=== PATIENT | female | born 1980 | race Caucasian/White ===

== ENCOUNTER → 2017-12-10 | Outpatient (CLI) | payer OTHER | LOC: BMCIMAGING 10:20 | PROVIDERS: ATTEND Physician Assistant | DX: M16.11 Unilateral primary osteoarthritis, right hip (principal) ==

== ENCOUNTER → 2018-01-05 | Outpatient (CLI) | payer OTHER | LOC: CIMAGING 09:21 | PROVIDERS: ATTEND Physician Assistant | DX: Z01.89 Encounter for other specified special examinations (principal); M24.851 Other specific joint derangements of right hip, not elsewhere classified; Z87.81 Personal history of (healed) traumatic fracture ==

== ENCOUNTER → 2018-01-07 | Outpatient (CLI) | payer OTHER | LOC: FIMAGING 10:32 | PROVIDERS: ATTEND Physician Assistant | DX: Z13.828 Encounter for screening for other musculoskeletal disorder (principal) ==

== ENCOUNTER 2018-03-30 06:09 | Inpatient (IN) | payer OTHER ==
[~2018-03-30 06:09] MED LIST: ROPIVACAINE 0.2% 80 MG, EPINEPHrine 0.2 MG, KETOROLAC TROMETHAMINE 30 MG, morphINE 10 M... IU ONE; TRANEXAMIC ACID 1,000 MG in NS 100 ML IV ONE
--- NOTE | 2018-03-30 06:40 | PDIAF ---
- Diagnosis Diagnosis: right hip djd Code Status: Full Code - Medication Management Discharge Medications: Medications to Continue on Transfer Ibuprofen [Motrin (*)] 200 mg PO DAILY PRN 03/03/18 [Last Taken Unknown] Multivitamins [Multivitamin (*)] 1 each PO DAILY 03/03/18 [Last Taken Unknown] Discharge Medications: Refer to the Discharge Home Medication list for PRN reason. - Orders Services needed: Physical Therapy Isolation Type: None Diet Recommendation: no restrictions on diet Diet Texture: Regular Texture Diet Additional Instructions: TOTAL JOINT ARTHROPLASTY DISCHARGE INSTRUCTIONS 1. Your surgeon follows the [facility] protocol for reducing your risk of DVT (blood clots) following surgery. Medication will be ordered to prevent blood clots. A sudden increase in calf pain and/or swelling could indicate a blood clot in your leg. If this occurs, please call your surgeon or his/her metal forger's assistant. An ultrasound of the leg may be necessary to diagnose a blood clot. If you have conditions that make you a higher risk for blood clots, your surgeon may use more aggressive ways to prevent them. Notify your surgeon if you think you are a high risk for blood clots. 2. Wear your white surgical stockings (ASAD hose) for 2 weeks. This decreases your swelling and may help prevent blood clots. It is ok to remove ASAD hose at night time to give your legs a break. 3. Swelling and bruising in the surgical leg is common. If you feel that it is excessive, please notify your surgeon. 4. Elevate your surgical leg with the ankle above the hip several times every day. Please keep the leg straight when you elevate by putting pillows under your foot. Do not put pillows under your knee. This will make being able to fully straighten more difficult. This is uncomfortable, but try to do it as much as possible. 5. For total knee replacements use compressive wrap on your knee for 3-5 days after surgery, then you can discontinue it. 6. Use a walker or crutches for 1-2 weeks. Progress your weight-bearing as tolerated. You may start to use a cane when you feel stable and safe. 7. You will receive physical therapy instructions in the hospital. Continue those exercises at home. There are additional exercises in the total joint booklet you were given before surgery. Outpatient physical therapy will begin 7- 10 days after surgery. Please schedule this in advance. 8. Use ice on your knee at least 3-5 times every day for 30 minutes. This helps reduce pain and swelling. Also use it at night before falling asleep. 9. Leave your surgical dressing in place for 2 weeks. Your dressing is water resistant, but not waterproof. Cover it with Saran Wrap or Jvidu-h-Nhbm before showering. You may shower as soon as you feel safe entering a shower. If you notice bleeding from your incision 2 or 3 days after surgery, please notify your surgeon. 10. Due to narcotics, decreased activity and altered diet, most patients experience constipation after surgery. Use mzrr-egd-edtyycl stool softeners while you are on narcotics. 11. You may drive a car when you are comfortable bearing weight, have good muscular control of your leg and are off narcotics. This usually occurs 2-4 weeks after surgery, depending on which leg was operated on. 12. If there are questions not addressed here, please refer the [facility] book given for more information. If you still have questions, please contact your surgeon s office. 13. If you have a life-threatening emergency, please call 911 and go to the emergency room immediately. For non-life threatening emergencies, please call your physicians office for advice before going to the emergency room. - Follow Up Care Current Providers and Referrals: Eri Irizarry MD [Primary Care Provider] - Milton Tillman MD [Medical Doctor] -
--- NOTE | 2018-03-30 06:40 | PDHPUP ---
History & Physical Update H&P update statement: This history and physical update is based on an assessment of the patient which was completed after admission or registration (within 24 hours), but prior to the surgery/procedure. H&P update: no change in patient's condition since H&P completed
[2018-03-30] MEDS ORDERED: ACETAMINOPHEN 325 MG TAB PO ONE (06:58)
[2018-03-30] MEDS ORDERED: FAMOTIDINE 20 MG TAB PO ONE (06:58)
[2018-03-30] MEDS ORDERED: ceFAZolin 2 GM/DEXTROSE 100 ML IV ONE (06:58)
[2018-03-30] MEDS ORDERED: ceFAZolin 1 GM/5 ML SYR ONE (07:05)
[2018-03-30] MEDS ORDERED: LR 1,000 ML IV ONE (07:29)
[2018-03-30] MEDS ORDERED: LIDOCAINE 1% 2 ML INJ ID PRN (07:29)
[2018-03-30] MEDS ORDERED: MIDAZOLAM 2 MG/2 ML VIAL IVP ONE (07:51)
--- NOTE | 2018-03-30 08:02 | PDANEPAE ---
ANE History of Present Illness GEOVANNI, R ANE Past Medical History - Cardiovascular History Hx Hypertension: No Hx Arrhythmias: No Hx Chest Pain: No Hx Coronary Artery / Peripheral Vascular Disease: No Hx CHF / Valvular Disease: No Hx Palpitations: No - Pulmonary History Hx COPD: No Hx Asthma/Reactive Airway Disease: No Hx Recent Upper Respiratory Infection: No Hx Oxygen in Use at Home: No Hx Sleep Apnea: No Sleep Apnea Screening Result - Last Documented: Negative - Neurologic History Hx Cerebrovascular Accident: No Hx Seizures: No Hx Dementia: No - Endocrine History Hx Diabetes: No Hypothyroid: No Hyperthyroid: No Obesity: no - Renal History Hx Renal Disorders: No - Liver History Hx Hepatic Disorders: No - Neurological & Psychiatric Hx Hx Neurological and Psychiatric Disorders: No - Cancer History Hx Cancer: No Cancer History Comment: BASAL CELL - Congenital Disorder History Hx Congenital Disorders: No - GI History GERD: no Hx Gastrointestinal Disorders: No Gastrointestinal History Comment: CELIAC DISEASE W/ IRREG - Other Health History Other Health History: none - Chronic Pain History Chronic Pain: Yes (right knee) - Surgical History Prior Surgeries: right hip reconstructive surgery x3. lymph node biopsies ANE Review of Systems Review of Systems: - Exercise capacity METS (RN): 5 METS ANE Patient History - Allergies Allergies/Adverse Reactions: No Known Allergies Allergy (Verified 03/03/18 10:19) - Home Medications Home Medications: Ibuprofen [Motrin (*)] 200 mg PO DAILY PRN 03/03/18 [Last Taken 03/23/18] Multivitamins [Multivitamin (*)] 1 each PO DAILY 03/03/18 [Last Taken Unknown] - NPO status NPO Since - Liquids (Date): 03/29/18 NPO Since - Liquids (Time): 23:29 NPO Since - Solids (Date): 03/29/18 NPO Since - Solids (Time): 22:00 - Anes Hx Anes Hx: post operative nausea and vomiting (pt. reports significant sleepiness post Scopolamine patch; would like to avoid it.) - Smoking Hx Smoking Status: Never smoked - Family Anes Hx Family Anes Hx: none Family Hx Anesthesia Complications: none ANE Labs/Vital Signs - Vital Signs Blood Pressure: 112/74 Heart Rate: 68 Respiratory Rate: 18 O2 Sat (%): 96 Height: 166.37 cm Weight: 61.235 kg ANE Physical Exam - Airway Neck exam: FROM Mallampati Score: Class 2 Mouth exam: normal dental/mouth exam - Pulmonary Pulmonary: clear to auscultation - Cardiovascular Cardiovascular: regular rate and rhythym - ASA Status ASA Status: II ANE Anesthesia Plan Anesthesia Plan: GA with mask, spinal Total IV Anesthesia: Yes
[2018-03-30] MEDS ORDERED: PROPOFOL 200 MG/20 ML VIAL ONE ×3 (08:07→09:50)
[2018-03-30] MEDS ORDERED: fentaNYL 100 MCG/2 ML INJ ONE (08:07)
[2018-03-30] MEDS ORDERED: ONDANSETRON 4 MG/2 ML VIAL ONE (09:28)
--- NOTE | 2018-03-30 10:36 | POSTOPPROG ---
Post Op Note Date of Operation: 03/30/18 Surgeon: Milton Tillman Partner Marketing Intern: leo Anesthesiologist: subha Anesthesia: Spinal Pre-op Diagnosis: right hip djd Post-op Diagnosis: same Indication: same Procedure: right juanito Inf/Abcess present in the surg proc area at time of surgery?: No Depth: Deep Incisional (Fascial) EBL: 100-500 Drains: Hemovac
[2018-03-30] MEDS ORDERED: POLYETHYLENE GLYCOL 3350 17 GM PKT PO PRN (10:37)
[2018-03-30] MEDS ORDERED: ONDANSETRON 4 MG/2 ML VIAL IVP PRN ×2 (10:37)
[2018-03-30] MEDS ORDERED: HYDROmorphONE/DILAUDID 1 MG/ML INJ IVP PRN (10:37)
[2018-03-30] MEDS ORDERED: PROMETHAZINE HCL 25 MG/ML INJ IVP PRN (10:37)
[2018-03-30] MEDS ORDERED: fentaNYL 100 MCG/2 ML INJ IVP PRN (10:37)
[2018-03-30] MEDS ORDERED: CYCLOBENZAPRINE 10 MG TAB PO PRN (10:37)
[2018-03-30] MEDS ORDERED: TEMAZEPAM 15 MG CAP PO PRN (10:37)
[2018-03-30] MEDS ORDERED: BISACODYL 10 MG SUPP PR PRN (10:37)
[2018-03-30] MEDS ORDERED: diphenhydrAMINE 25 MG CAP PO PRN (10:37)
[2018-03-30] MEDS ORDERED: ONDANSETRON DISINTEGRATING 4 MG TAB PO PRN (10:37)
[2018-03-30] MEDS ORDERED: PROMETHAZINE HCL 25 MG SUPPR PR PRN (10:37)
[2018-03-30] MEDS ORDERED: DIPHENOXYLATE/ATROPINE LOMOTIL 1 TAB PO PRN (10:37)
[2018-03-30] MEDS ORDERED: MAGNESIUM HYDROXIDE 30 ML UDCUP PO PRN (10:37)
[2018-03-30] MEDS ORDERED: oxyCODONE IR 5 MG TAB PO PRN (10:37)
[2018-03-30] MEDS ORDERED: METOCLOPRAMIDE 10 MG/2 ML VIAL IVP PRN (10:37)
[2018-03-30] MEDS ORDERED: LACTULOSE 20 GM/30 ML UDCUP PO PRN (10:37)
[2018-03-30] MEDS ORDERED: NALOXONE HCL 0.4 MG/ML INJ IVP PRN (10:37)
[2018-03-30] MEDS ORDERED: TRANEXAMIC ACID 650 MG TAB PO SCH (10:45)
--- NOTE | 2018-03-30 11:33 | PDMN ---
Medical Necessity Medical necessity: [facility] G911 hip arthroplasty: [facility] INPT only- R GEOVANNI
[2018-03-30] MEDS: ACETAMINOPHEN 325 MG TAB PO SCH ×3 (12:38→23:46)
[2018-03-30] MEDS: LR 1,000 ML IV SCH ×2 (13:04→20:49)
--- NOTE | 2018-03-30 13:51 | POSTANESTH ---
Post Anesthetic Evaluation Cardiovascular Status: Normal, Stable Respiratory Status: Normal, Stable Level of Consciousness/Mental Status: Can Participate in Eval Pain Control: Adequate, Prn Tx Ordered Nausea/Vomiting Control: Adequate, Prn Tx Ordered Complications Possibly Related to Anesthesia: None Noted
[2018-03-30] MEDS: ceFAZolin 2 GM/DEXTROSE 100 ML IV SCH ×2 (14:18→22:03)
[2018-03-30] MEDS: TRANEXAMIC ACID 650 MG TAB PO SCH ×2 (14:18→22:03)
[2018-03-30] MEDS: FAMOTIDINE 20 MG TAB PO SCH (20:47)
[2018-03-30] MEDS: ASPIRIN 325 MG TAB PO SCH (20:47)
[2018-03-30] MEDS: SENNOSIDES/DOCUSATE SODIUM TAB PO SCH (20:48)
[2018-03-31] MEDS: TRANEXAMIC ACID 650 MG TAB PO SCH (05:37)
[2018-03-31] MEDS: ACETAMINOPHEN 325 MG TAB PO SCH ×2 (05:38→12:15)
--- NOTE | 2018-03-31 06:54 | PDIAF ---
- Diagnosis Diagnosis: right hip djd Code Status: Full Code - Medication Management Discharge Medications: Medications to Continue on Transfer Multivitamins [Multivitamin (*)] 1 each PO DAILY 03/03/18 [Last Taken Unknown] oxyCODONE IR [Oxycodone Ir (*)] 5 - 10 mg PO Q3HRS PRN #50 tab 03/31/18 [Last Taken Unknown] Discharge Medications: Refer to the Discharge Home Medication list for PRN reason. - Orders Services needed: Physical Therapy Isolation Type: None Diet Recommendation: no restrictions on diet Diet Texture: Regular Texture Diet Additional Instructions: TOTAL JOINT ARTHROPLASTY DISCHARGE INSTRUCTIONS 1. Your surgeon follows the [facility] protocol for reducing your risk of DVT (blood clots) following surgery. Medication will be ordered to prevent blood clots. A sudden increase in calf pain and/or swelling could indicate a blood clot in your leg. If this occurs, please call your surgeon or his/her mental health assistant. An ultrasound of the leg may be necessary to diagnose a blood clot. If you have conditions that make you a higher risk for blood clots, your surgeon may use more aggressive ways to prevent them. Notify your surgeon if you think you are a high risk for blood clots. 2. Wear your white surgical stockings (ASAD hose) for 2 weeks. This decreases your swelling and may help prevent blood clots. It is ok to remove ASAD hose at night time to give your legs a break. 3. Swelling and bruising in the surgical leg is common. If you feel that it is excessive, please notify your surgeon. 4. Elevate your surgical leg with the ankle above the hip several times every day. Please keep the leg straight when you elevate by putting pillows under your foot. Do not put pillows under your knee. This will make being able to fully straighten more difficult. This is uncomfortable, but try to do it as much as possible. 5. For total knee replacements use compressive wrap on your knee for 3-5 days after surgery, then you can discontinue it. 6. Use a walker or crutches for 1-2 weeks. Progress your weight-bearing as tolerated. You may start to use a cane when you feel stable and safe. 7. You will receive physical therapy instructions in the hospital. Continue those exercises at home. There are additional exercises in the total joint booklet you were given before surgery. Outpatient physical therapy will begin 7- 10 days after surgery. Please schedule this in advance. 8. Use ice on your knee at least 3-5 times every day for 30 minutes. This helps reduce pain and swelling. Also use it at night before falling asleep. 9. Leave your surgical dressing in place for 2 weeks. Your dressing is water resistant, but not waterproof. Cover it with Saran Wrap or Elkgx-f-Laym before showering. You may shower as soon as you feel safe entering a shower. If you notice bleeding from your incision 2 or 3 days after surgery, please notify your surgeon. 10. Due to narcotics, decreased activity and altered diet, most patients experience constipation after surgery. Use xzxe-hmy-qxktwby stool softeners while you are on narcotics. 11. You may drive a car when you are comfortable bearing weight, have good muscular control of your leg and are off narcotics. This usually occurs 2-4 weeks after surgery, depending on which leg was operated on. 12. If there are questions not addressed here, please refer the [facility] book given for more information. If you still have questions, please contact your surgeon s office. 13. If you have a life-threatening emergency, please call 911 and go to the emergency room immediately. For non-life threatening emergencies, please call your physicians office for advice before going to the emergency room. - Follow Up Care Current Providers and Referrals: Eri Irizarry MD [Primary Care Provider] - Milton Tillman MD [Medical Doctor] -
--- NOTE | 2018-03-31 06:56 | SOAPPROG ---
SOAP Progress Note Assessment/Plan: Assessment: s/p right juanito Plan:low bp and syncope progressive mobility with pt /fu at two weeks seek attn for increasing pain or other focal complaints 03/31/18 06:54 Subjective: lightheaded yesterday no current nausea no cp or sob Objective: Vital Signs Temp Pulse Resp BP Pulse Ox 36.9 C 59 L 18 87/48 L 98 03/31/18 04:00 03/31/18 04:00 03/31/18 04:00 03/31/18 04:00 03/31/18 04:00 Laboratory Results 03/31/18 04:24 03/30/18 03/31/18 04/01/18 05:59 05:59 05:59 Intake Total 3850 Output Total 2730 Balance 1120 dressing intact intact pf,df,ehl toes warm and pink neg homans karla xrays stable anatomic alignment no fx or lucency ICD10 Worksheet Patient Problems: Problems Problem Status Onset Hip arthritis Acute - ICD10 Problem Qualifiers (1) Hip arthritis
[2018-03-31] MEDS ORDERED: MULTIVITAMINS 1 EACH TAB PO SCH (09:00)
[2018-03-31] MEDS: FAMOTIDINE 20 MG TAB PO SCH (09:56)
[2018-03-31] MEDS: ASPIRIN 325 MG TAB PO SCH (09:56)
[2018-03-31] MEDS: SENNOSIDES/DOCUSATE SODIUM TAB PO SCH (09:56)
--- NOTE | 2018-03-31 10:36 | ASMTLACE ---
LACE Length of stay for Answers: 1 day current admission Acuity / Level of Answers: Yes Care: Did the patient have an inpatient admission? Comorbidities - select Answers: Opioid dependence all that apply / Chronic pain Other Notes: Basal cell ca; Celiac disease # of Emergency department Answers: 0 visits in the last 6 months Score: 9 Date Signed: 03/31/2018 10:12 AM Electronically Signed By:Zoraida Beard RN
--- NOTE | 2018-03-31 10:36 | ASMTCMCOM ---
CM Note CM Note Notes: Reviewed chart and therapy recommendations for discharge planning purposes. Met with patient to discuss discharge planning. patient stated she does have an outpatient PT she has worked with in the past, but feels HC initially may be best. Patient does not have a preference on HC agency, and is agreeable to [facility]. Spoke with intake at [facility] regarding referral, able to accept. Patient will discharge today with support of and [facility] PT. CM available for any further needs. Plan: [facility] PT Date Signed: 03/31/2018 10:11 AM Electronically Signed By:Zoraida Beard RN
[2018-03-31 11:56] VITALS: BP 100/57
--- NOTE | 2018-04-01 10:21 | ASDISCHSUM ---
Discharge Information Plan Status:Home with Home Health Medically Cleared to Leave: Discharge Date:03/31/2018 12:22 PM CM D/C Disposition:Home Health Service ADT D/C Disposition:Home Health Service Projected Discharge Date:03/31/2018 11:00 AM Transportation at D/C:Family Discharge Delay Reason: Follow-Up Date:03/31/2018 11:00 AM Discharge Slot: Final Diagnosis: Placement Information Referral Type:*Home Health Care Services Referral ID:[id number] Provider Name:[facility] Address 1:[address] Address 2: City:[place] Selection Factors: State:[place] Patient Contact Information Contact Name:NIRMALA Relationship: Address:[address] Home Phone: City:[place] Alternate Phone: State/Zip Code:[place] [address] Email: Financial Information Financial Class:HMO and PPO Plans Primary Plan Desc:[employer]ISALY Primary Plan Number:[id number] Secondary Plan Desc: Secondary Plan Number: Assessment Information LACE LACE Length of stay for Answers: 1 day current admission Acuity / Level of Answers: Yes Care: Did the patient have an inpatient admission? Comorbidities - select Answers: Opioid dependence all that apply / Chronic pain Other Notes: Basal cell ca; Celiac disease # of Emergency department Answers: 0 visits in the last 6 months Score: 9 Date Signed: 03/31/2018 10:12 AM Electronically Signed By:Zoraida Beard RN [facility] CM Progress Note CM Note CM Note Notes: Reviewed chart and therapy recommendations for discharge planning purposes. Met with patient to discuss discharge planning. patient stated she does have an outpatient PT she has worked with in the past, but feels HC initially may be best. Patient does not have a preference on HC agency, and is agreeable to [facility]. Spoke with intake at [facility] regarding referral, able to accept. Patient will discharge today with support of and [facility] PT. CM available for any further needs. Plan: [facility] PT Date Signed: 03/31/2018 10:11 AM Electronically Signed By:Zoraida Beard RN Intervention Information
--- NOTE | 2018-04-04 07:50 | GDS ---
ADMIT DIAGNOSIS: Right hip degenerative joint disease. DISCHARGE DIAGNOSIS: Right hip degenerative joint disease. PROCEDURE: Right total hip arthroplasty. 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 She has failed all attempts at conservative management. I have th erefore recommended total hip replacement. She understood the risks, benefits, alternatives, and wis hed to proceed. Written consent was signed and placed in patient's chart. HOSPITAL COURSE: Patient admitted to hospital and underwent uncomplicated total hip arthroplasty. I nitial postop day was characterized by low blood pressure and difficulty working with physical therap y. On the initial postoperative day she was able to weight bear and including physical therapy witho ut difficulty. At the time of discharge she is tolerating an oral diet. Pain was well controlled on oral medicines. She is voiding without difficulty. Dressing is clean, dry, and intact. She has bee n cleared by therapy. DISCHARGE ACTIVITY: Weightbearing as tolerated. Anterior hip precautions. Keep the dressing clean, dry, and intact. FOLLOWUP: For increasing redness, swelling, drainage, discharge, leg pain or other focal complaints. DISCHARGE MEDICATIONS: 1. Oxycodone 5 mg, 1 p.o. every 6 hours p.r.n. pain. 2. Aspirin 325 mg p.o. daily for 6 weeks. /[id number]/MODL
--- NOTE | 2018-04-04 07:55 | GOP ---
DATE OF OPERATION: SURGEON: Milton Tillman MD DIE REPAIR MACHINIST: Evangelista Singer, surgical rn, was a medical necessity for the entirety of the case. PREOPERATIVE DIAGNOSIS: Right hip, degenerative joint disease. POSTOPERATIVE DIAGNOSIS: Right hip, degenerative joint disease. PROCEDURE PERFORMED: Right total hip arthroplasty, MAKOplasty. FINDINGS: SPECIMENS: To Pathology, the femoral head. ESTIMATED BLOOD LOSS: 400 cc. INDICATIONS: The patient is a 37-year-old woman with advanced dysplasia to her hip. She has failed all attempts at conservative management. She has end-stage arthritis secondarily to her right hip. I recommended total hip replacement, I have outlined the risks, benefits, alternatives. She wished t o proceed. Appropriate consent was signed and placed in patient's chart. DESCRIPTION OF PROCEDURE: The patient was identified in the preanesthesia area. The right hip clear ly demarcated as the operative site with indelible marker. She was given 2 g of Ancef intravenously en route to the operative suite. In the OR, spinal anesthetic was placed followed by sedation. She was positioned in the supine position. The pelvis and both lower extremities were then sterilely pre pped and draped in the usual fashion. Appropriate time-out procedure was carried out. Attention was first turned to the left iliac crest. A 2 cm incision was made. Three percutaneous pins were place d and the pelvic reference array affixed. Attention was then turned to the right hip. An anterior a pproach was made. Thick subcutaneous flaps were elevated. The fascia of the tensor fascia tao was identified and opened in the origin of its fibers. The tensor was then retracted laterally. The und erlying vascular structures were identified and ligated, cauterized and transected. The Hohmann retr actors were placed in an extracapsular position. T capsulotomy was made followed by the retractor be ing placed into an intracapsular position. Acetabular checkpoint was placed. A femoral neck wedge w as withdrawn, as was the remnants of the femoral head. This was grossly misshapen. An acetabular ch maine point had been placed. The bony landmarks were then entered into the computer in standard fashio n and using the MAKOplasty robot, ultimately resection was made with a 50 mm reamer with an opening a ngle of 40 degrees and anteversion of 20 degrees creating an acetabular socket out of the dysplastic socket. A 50 mm acetabular shell was then impacted. This was stable and secured with 2 additional 6 .5 mm cancellous screws. A 0-degree X3 liner with 32 mm inner diameter was then placed, confirmed to be fully seated. This positioning was confirmed with fluoroscopic evaluation. Attention was then t urned to the femur. This was delivered with the use of soft tissue retraction, figure 4 position and extension of the table. Proximal canal was opened, however, the canal was difficult to pass any ins truments, therefore, a flexible guidewire was placed and using the flexible reamers, the canal was op ened to a 10.5 mm reamer. This allowed passage of the broaches and ultimately a size [address] aced and trial reduction was carried out with a 32 mm +0 mm neck length head. This allowed appropria te moravian of leg length. Stability profile demonstrated full extension, external rotation of 90 degrees without subluxation. The trial stem was withdrawn. A size 327 degree neck angle hip stem w as then placed confirmed to be fully seated and a 32 mm Biolox head +0 mm neck length was placed over the cleansed trunnion. The hip was copiously irrigated, reduced. Stability profile was as previous . The tissues were injected with a joint cocktail of ropivacaine, morphine, Toradol, and epinephrine . The tensor fascia was closed using a 0 Vicryl. A 10-Kenyan drain had been passed and connected to bulb suction. The subcutaneous tissue was closed using 2-0 Monocryl and a ZipFix closure was utiliz ed for the incisions followed by sterile dressing. The patient was awakened, extubated and taken to the recovery room in good stable condition. TOTAL TOURNIQUET TIME: None. COMPLICATIONS: None. IMPLANTS: Adair titanium II acetabular shell, size 50 mm, two 6.5 mm cancellous screws, 0 degree X 3 liner, 32 mm inner diameter, Accolate II 127 degree neck angle hip stem size 3, and a 32 mm +0 mm n maine length Biolox head. DISPOSITION: To the recovery room, then the floor. She is weightbearing as tolerated. Anterior pre cautions. /[id number]/MODL
== END 2018-03-31 12:22 | disposition home health service (06) | DRG 470 ==
LOC: F3N 06:09
PROVIDERS: ADMIT Orthopaedic Surgery; ATTEND Orthopaedic Surgery
PROC: 0SR904Z Replacement of Right Hip Joint with Ceramic on Polyethylene Synthetic Substitute, Open Approach (ICD-10-PCS; principal; 2018-03-30 08:30)
PROC: 8E0Y0CZ Robotic Assisted Procedure of Lower Extremity, Open Approach (ICD-10-PCS; principal; 2018-03-30 08:30)
DX: M16.11 Unilateral primary osteoarthritis, right hip (principal)
CPT/HCPCS: 97110-GP; 97116-GP; 97161-GP; 97165-GO; 97530-GP; C1713; J0171; J0690; J1885; J2250; J2270; J2405; J2704; J2795; J3010

== ENCOUNTER → 2018-05-12 | Outpatient (CLI) | payer OTHER | LOC: BMCIMAGING 10:01 | PROVIDERS: ATTEND Physician Assistant | DX: Z47.1 Aftercare following joint replacement surgery (principal); Z96.641 Presence of right artificial hip joint ==

== ENCOUNTER → 2018-07-01 | Outpatient (CLI) | payer OTHER | LOC: BMCIMAGING 10:32 | PROVIDERS: ATTEND Orthopaedic Surgery | DX: Z09 Encounter for follow-up examination after completed treatment for conditions other than malignant neoplasm (principal); Z96.641 Presence of right artificial hip joint ==

== ENCOUNTER → 2018-09-30 | Outpatient (CLI) | payer OTHER | LOC: BMCIMAGING 09:29 | PROVIDERS: ATTEND Orthopaedic Surgery | DX: Z09 Encounter for follow-up examination after completed treatment for conditions other than malignant neoplasm (principal); Z98.890 Other specified postprocedural states; Z96.651 Presence of right artificial knee joint ==

== ENCOUNTER → 2018-10-01 | Outpatient (CLI) | payer OTHER ==
[~2018-10-01] MED LIST changes: +IOPAMIDOL (ISOVUE 370) 100 ML BTL IV ONE; -ROPIVACAINE 0.2% 80 MG, EPINEPHrine 0.2 MG, KETOROLAC TROMETHAMINE 30 MG, morphINE 10 M... IU ONE; -TRANEXAMIC ACID 1,000 MG in NS 100 ML IV ONE
== END ==
LOC: FIMAGING 08:59
PROVIDERS: ATTEND Internal Medicine
DX: I77.3 Arterial fibromuscular dysplasia (principal); R93.1 Abnormal findings on diagnostic imaging of heart and coronary circulation; R91.1 Solitary pulmonary nodule; Z96.641 Presence of right artificial hip joint
CPT/HCPCS: Q9967